=== PATIENT | male | born 1985 | race Caucasian/White ===

== ENCOUNTER 2019-07-27 23:52 | Emergency (ER) | payer MEDICAID, OTHER ==
[~2019-07-27] VITALS: Ht 190.5 cm; Wt 109.1 kg
[~2019-07-27 23:52] MED LIST: NO HOME MEDS
[2019-07-28] MEDS ORDERED: ketorolac trometh inj. 60 MG/2 ML VIAL IM ONE (01:30)
[2019-07-28 01:43] VITALS: BP 138/100
== END 2019-07-28 01:45 ==
LOC: ER 23:52
DX: S20.211A Contusion of right front wall of thorax, initial encounter (principal); F15.90 Other stimulant use, unspecified, uncomplicated; Z59.0 Homelessness; Z88.0 Allergy status to penicillin; W17.89XA Other fall from one level to another, initial encounter; Y93.89 Activity, other specified; Y92.89 Other specified places as the place of occurrence of the external cause; Y99.8 Other external cause status
CPT/HCPCS: 71101; 96372; 99283; J1885